=== PATIENT | male | born 1980 | race Caucasian/White ===

== ENCOUNTER 2017-12-21 19:08 | Emergency (ER) | payer SELFPAY ==
[2017-12-21] MEDS ORDERED: Adacel (T-DAP) 0.5 ML VIAL ONE (19:24)
== END 2017-12-21 19:43 | disposition home or self-care (01) ==
LOC: SCSER 19:08
DX: S61.011A Laceration without foreign body of right thumb without damage to nail, initial encounter (principal); F17.210 Nicotine dependence, cigarettes, uncomplicated; W26.8XXA Contact with other sharp object(s), not elsewhere classified, initial encounter
CPT/HCPCS: 90471; 90715